=== PATIENT | male | born 1945 | race Caucasian/White ===

== ENCOUNTER 2016-06-07 08:22 | Day surgery (SDC) | payer MEDICARE ==
--- NOTE | 2016-06-01 15:03 | PREOP HISTORY & PHYSICAL ---
HISTORY: 70 year old male here for evaluation of declining vision over time. The patient has been having great difficulty driving in low-sun conditions with severe glare symptoms. He also notes worsening glare symptoms with oncoming headlights. Otherwise, the patient denies any issues with reading, watching television, or seeing street signs during the day. 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 He therefore phoned us from [facility] requesting an urgent appointment for today. He will use over-the- counter readers as needed, but does not have any distance glasses. 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 ALLERGIES: No Known Drug Allergies FAMILY HISTORY: Mother History of macular degeneration and glaucoma. SOCIAL HISTORY: Alcohol use Occasional alcohol use. Tobacco use Never smoker. Vehicle Driving Yes. CURRENT MEDICATIONS; Advil (200MG Capsule, Oral as needed) Active. Synthroid (125MCG Tablet, 1 Oral daily, Taken starting 07/24/2011) Active. Tylenol Extra Strength (500MG Tablet, 1 Oral as needed every 6 hours) Active. ( takes total 2 - 4 tabs overall daily now) Medications Reconciled PAST SURGICAL HISTORY: Basal Cell Carcinoma Excision Right forehead, about 8 years ago Excision Deep Cervical Node06/16/[address] Gastelum Fine Needle Aspiration [id number]/2015 Left, In-office. Submandibular lymph node, Dr. Gastelum Insert Tunneled CV Access Device with Port, 10/27/2011. [place] [facility] [place] Left Inguinal Node Biopsy and Fine Needle Aspiration Biopsy Right Cervical Node , 10/11/11. [place] [facility] [place] Removal of Cyst from Testicle, Late 1979' Thyroidectomy; [id number] Inpatient. For thyroid carcinoma. Tonsillectomy Adenoidectomy, 8 years old approximately REVIEW OF SYSTEMS: General Not Present- Fever. Skin Present- Skin Cancer (Basal cell - above right eye, approximately 2009.). Not Present- New Lesions and Skin Problems. HEENT Present- Allergies, Blurred Vision (OU) and Decreased Hearing. Not Present - Eye Pain, Sinusitis and Sleep Apnea. Respiratory Not Present- Asthma, Chronic Cough, Emphysema and Shortness of Breath. Breast Not Present- Breast Cancer. Cardiovascular Present- Hyperlipidemia and Irregular Heart Beat. Not Present- Angina, Heart Problems, Heart Stent and Hypertension. Gastrointestinal Not Present- Heartburn and PUD. Male Genitourinary Not Present- BPH and Prostate cancer. Musculoskeletal Not Present- Joint Pain. Neurological Not Present- Decreased Memory, Headaches, Stroke and Vertigo. Psychiatric Not Present- Anxiety and Depression. Endocrine Present- Thyroid Problems (Thyroid cancer approximately 1999). Not Present- Diabetes. Hematology Not Present- Bleeding Problems and Blood Clots. Note: Reviewed by Dr. Fuller. PHYSICAL EXAMINATION: 05/29/2016 5:03 PM Pulse: 74 (Regular) P.OX: 93% (Room air) BP: 139/100 (Sitting, Left Wrist, Small) Chest and Lung Exam Auscultation Breath sounds - Clear and Symmetric throughout. Cardiovascular Auscultation Rhythm - Regular. Heart Sounds - Normal heart sounds. Murmurs & Other Heart Sounds - Auscultation of the heart reveals - No Murmurs. OCULAR EXAMINATION: VISUAL ACUITY: without correction OD 20/30-1 OS 20/200 VISUAL ACUITY: with correction (Glasses) NEAR J1 at 14" WORKING Rx: ADD + 2.00 (Vpry-bsi-onrpfsy readers) MANIFEST REFRACTION: OD -0.75 + 0.75 x 180 (20/30+2 BAT 20/40) Better vision in trial frames OS -2.75 + 1.75 x 180 (20/100+1) Slightly better vision in trial frames ADD + 2.50 (J1+ at 14") Better near vision in trial frames than previous Rx KERATOMETRY: OD 46.94 / 48.04 x 109 OS 46.74 / 47.17 x 115 AXIAL LENGTH: OD 23.32 +/- 0.014 OS 23.55 +/- 0.013 CONFRONTATIONAL VISUAL PATEL: Normal to counting fingers in four quadrants OU PUPILS: Round and equal OU with no afferent pupillary defect seen EXTERNAL: Normal OU EXTRA-OCULAR MUSCLES: Versions full OU - orthotropic at both distance and near SLIT LAMP EXAM: LIDS/LASHES: Normal OU CONJUNCTIVA: Quiet OU CORNEA: Clear OU AC: Deep and quiet OU IRIS: Normal OU PUPILS: Round OU - dilated to about 5 mm OU LENS: 2+ nuclear sclerosis with 2+ cortical and a trace of diffuse posterior sub-capsular cataract changes OD. 3+ yellow nuclear sclerosis with 2+ cortical and 4+ dense and diffuse posterior sub-capsular cataract changes in the visual axis OS ANTERIOR VITREOUS: No anterior vitreous cells or pigment seen OU TONOMETRY: TIME: 2:59 PM OD: 18 mm Hg (very difficult as patient was squeezing eyelids excessively OU) OS: 14 mm Hg DILATING gtt: Phenylephrine 2.5% + Tropicamide 1% FUNDUS: C/D: 0.4 OU (poor view of the posterior pole OS due to cataract) DISCS: Sharp with clear disc margins OU MACULA: 1-2+ central pigmentary mottling with a few scattered hard drusen OU VESSELS: Normal OU PERIPHERY: Normal OU IMPRESSION: Posterior subcapsular age-related cataract, both eyes (H25.043). Story: Advanced posterior sub-capsular cataracts OS >> OD. The patient is a commercial coordinator and his DOL physical (including vision) is due in less than a month. He is requesting cataract surgery as soon as possible for this reason. We discussed the refractive goals today and the patient would like to be corrected to a near-plano spherical equivalent postoperatively OS. Macular degeneration (senile) of retina (H35.30) Story: Early macular degeneration with a family history of macular degeneration (patient's mother) - the patient has early dry age-related macular degeneration OU which may limit the best-corrected visual acuity after surgery (discussed with patient today). Refractive error - note a marked myopic shift OS. Nevertheless, his best- corrected visual acuity remains poor OS. PLAN: Cataract extraction with intra-ocular lens OS, June 07, 2016. Started Erythromycin 5MG/GM, Apply 1/8 inch Ointment to the eyelashes of both eyes at bedtime, 1 Tube, 05/29/2016, Ref. x1. Started Zymaxid 0.5%, 1 drop(s) four times daily to the operated eye, after surgery, 1 Bottle, 05/29/2016, Ref. x1. Started PrednisoLONE Acetate 1%, 1 drop(s) four times daily in the operated eye , after surgery, 10 Milliliter, 05/29/2016, Ref. x1. MTDD
[~2016-06-07 08:22] MED LIST: APRACLONIDINE 0.5% OPHTH 5 ML BTL OP ONE; BUPIVACAINE HCL/PF 0.75% 10 ML VIAL OP ONE; CIPROFLOXACIN 0.3% OPHTH 50 DROP/5 ML BTL OP SCH; CYCLOPENTOLATE HCL 1% OPHTH 2 ML BTL OP SCH; FLURBIPROFEN 0.03% OPHTH 2.5 ML BTL OP SCH; PHENYLEPHRINE 2.5% OPHTH 10 DROP/2 ML BTL OP SCH
[2016-06-07] MEDS ORDERED: APRACLONIDINE 0.5% OPHTH 5 ML BTL ONE (08:53)
[2016-06-07] MEDS ORDERED: CIPROFLOXACIN 0.3% OPHTH 50 DROP/5 ML BTL ONE (08:53)
[2016-06-07] MEDS ORDERED: BUPIVACAINE HCL/PF 0.75% 10 ML VIAL ONE (08:53)
[2016-06-07] MEDS ORDERED: CYCLOPENTOLATE HCL 1% OPHTH 2 ML BTL ONE (08:53)
[2016-06-07] MEDS ORDERED: FLURBIPROFEN 0.03% OPHTH 2.5 ML BTL ONE (08:53)
[2016-06-07] MEDS ORDERED: PHENYLEPHRINE 2.5% OPHTH 10 DROP/2 ML BTL ONE (08:54)
[2016-06-07] MEDS ORDERED: BACITRACIN OPHTH OINTMENT 3.5 GM TUBE ONE (09:50)
[2016-06-07] MEDS ORDERED: KETOROLAC 0.45% OPHTH 1 DROP/EACH DROPERETTE ONE (09:50)
[2016-06-07] MEDS ORDERED: LIDOCAINE HCL/PF 1% 30 ML VIAL ONE (09:50)
[2016-06-07] MEDS ORDERED: CHONDROITIN/HYALURONIDATE OPHT 0.5 ML KIT ONE (09:50)
[2016-06-07 09:52] VITALS: TEMP 98.8
[2016-06-07 10:40] VITALS: BP 143/101; PULSE 86; RESP 22; O2SAT 91
--- NOTE | 2016-06-07 15:25 | OPERATIVE REPORT ---
DATE OF SURGERY: 06/07/2016. SURGEON: Jas Fuller MD ANESTHESIA: Topical with monitored anesthesia care. PREOPERATIVE DIAGNOSIS: Cataract, left eye. POSTOPERATIVE DIAGNOSIS: Cataract, left eye. OPERATION PERFORMED: Cataract extraction by phacoemulsification with posterior chamber intraocular lens, left eye. COMPLICATIONS: None. PROCEDURE: The patient was brought to the operating room where he was placed in the supine position. After the instillation of additional tetracaine drops in the left eye, the eye was prepped and draped in the usual sterile ophthalmic manner. A lid speculum was placed in the left eye, after which an inferior paracentesis was fashioned with 1-mm steel keratome, and 0.2 mL of 1% nonpreserved lidocaine was injected intracamerally followed by Viscoat. A temporal clear corneal incision of 3-mm width was fashioned with a steel keratome. A continuous curvilinear capsulorrhexis was fashioned with a bent-needle cystitome and Utrata forceps under Viscoat. This was necessarily kept small as the patient's pupil did not dilate well. Hydrodissection was carried out with balanced salt solution on an intraocular cannula. The nucleus was noted to rotate freely. Phacoemulsification proceeded in a two-handed fashion utilizing typical phacoemulsification times and del castillo, as the nucleus was noted to be 2-3+ dense. Residual cortical material was then removed with the automated irrigation-aspiration handpiece. The anterior chamber and capsular bag were then reinflated with Provisc, after which an AcrySof model SA60AT foldable acrylic intraocular lens of 17.0 diopters power was placed into the capsular bag. The haptics were rotated with a Y hook and the intraocular lens was noted to center well. Residual viscoelastic was then removed with the automated irrigation-aspiration handpiece , after which the wound edges were hydrated with balanced salt solution. The intraocular pressure at the conclusion of the procedure was physiologic, and there was no evidence of wound leakage upon testing with a Weck Deya sponge. Acular drops and bacitracin ointment were placed in the left eye, and the patient was brought to the recovery area, having tolerated the procedure well. He was given full postoperative instructions. ELIGIO
== END 2016-06-07 11:00 | disposition home or self-care (01) ==
LOC: SDS 08:22
PROVIDERS: ATTEND Ophthalmology
DX: H25.042 Posterior subcapsular polar age-related cataract, left eye (principal); H35.3131 Nonexudative age-related macular degeneration, bilateral, early dry stage; E03.9 Hypothyroidism, unspecified; C85.90 Non-Hodgkin lymphoma, unspecified, unspecified site; E78.5 Hyperlipidemia, unspecified; H91.90 Unspecified hearing loss, unspecified ear; I49.49 Other premature depolarization; J30.9 Allergic rhinitis, unspecified; Z79.899 Other long term (current) drug therapy
CPT/HCPCS: 66984; J0171; V2632